=== PATIENT | male | born 1995 | race Two or more races ===

== ENCOUNTER 2021-05-07 12:46 | Emergency (ER) | payer OTHER ==
[~2021-05-07] VITALS: Ht 172.7 cm; Wt 63.5 kg
[2021-05-07] MEDS ORDERED: BUPROPION XL150 MG PO (12:58)
[2021-05-07] MEDS ORDERED: BUPROPION XL300 MG PO (12:58)
== END 2021-05-07 14:41 | disposition home or self-care (01) ==
LOC: ER 12:46
DX: R53.81 Other malaise (principal); Z86.19 Personal history of other infectious and parasitic diseases

== ENCOUNTER 2023-08-22 08:27 | Emergency (ER) | payer OTHER ==
[~2023-08-22] VITALS: Ht 172.7 cm; Wt 68.0 kg
[~2023-08-22 08:27] MED LIST: BUPROPION XL150 MG PO; BUPROPION XL300 MG PO
[2023-08-22 09:34] LABS: HEMATOCRIT 41.8 % (39.0-48.0); HEMOGLOBIN 14.2 g/dL (13-16.00); MEAN CELL VOLUME 90.9 fL (80.0-100.00); MEAN CORPUSCULAR HEMOGLOBIN 30.9 pg (27.00-32.0); PLATELET COUNT 271 K/uL (150-450); RED CELL DISTRIBUTION WIDTH 13.9 % (11.5-14.5)
[2023-08-22] MEDS ORDERED: DUI500 PO (09:54)
== END 2023-08-22 09:57 | disposition home or self-care (01) ==
LOC: ER 08:27
PROVIDERS: General Practice
DX: R53.81 Other malaise (principal); R07.0 Pain in throat